=== PATIENT | female | born 1980 | race Caucasian/White ===

== ENCOUNTER 2017-05-31 13:47 | Emergency (ER) | payer BC ==
[~2017-05-31 13:47] MED LIST: HYDR-3533 PO; LIDO5DIS35 TD; ZOVI800T13 PO
[2017-05-31 13:52] VITALS: BP 120/73; PULSE 100; RESP 20; TEMP 97.5; O2SAT 99
[2017-05-31 14:32] VITALS: BP_SYST 107; BP_SYST 109; BP_SYST 115; BP_DIAS 62; BP_DIAS 71; BP_DIAS 78; RESP 18
[2017-05-31] MEDS ORDERED: SODIUM CHLOR 0.9% 1000 ML INJ 1,000 ML IV ONE (14:41)
[2017-05-31] MEDS ORDERED: SODIUM CHLORIDE 0.9% FLUSH 10 ML FLUSH IVF PRN (14:45)
--- NOTE | 2017-05-31 14:53 | PD ---
HPI Chief Complaint: Syncope/Near-Syncope Time Seen by Provider: 14:33 Travel History International Travel<30 days: No Contact w/Intl Traveler<30days: No Traveled to known affect area: No History of Present Illness HPI Patient is a 37-year-old female who presents to emergency with complete a syncopal episode. Patient reports that she has no medical problems, reports that she has been feeling fine all day. Patient reports that she was at work today and spent her lunch break outside. Reports that after her lunch break, she went to the elevator and had a syncopal episode. Patient reports that before she knew it, she was sitting straight up on the elevator. Reports that the elevator had not moved yet so she doesn't think that she was "out" for a prolonged period of time. Reports that she is unsure if she hit her head or not but "doubts it." Patient at this time complains of a slight right-sided frontal headache. Denies any vision changes. Patient denies lightheadedness or dizziness. She denies any chest pain or shortness of breath. Patient reports no abdominal pain just abdominal discomfort with no nausea or vomiting or diarrhea. Patient with no fevers or chills or any other complaints. PFSH Past Medical History Medical History: Denies Significant Hx Hx Anticoagulant Therapy: No Cardiovascular Problems: No Chemotherapy: No Cerebrovascular Accident: No Diabetes: No Respiratory: No Tetanus Vaccination: > 5 Years Influenza Vaccination: No ?: Unknown : 2 Para: 2 Past Surgical History Hysterectomy: No Oral Surgery: Yes Thoracic Surgery: Yes (RIGHT BREAST LUMP REMOVAL) Other Surgery: Yes (R LUMPECTOMY) Social History Alcohol Use: Yes (OCC) Tobacco Use: Yes (09/20 ppd) Substance Use: No Allergies-Medications (Allergen,Severity, Reaction): Coded Allergies: progesterone (Unverified Allergy, Severe, HEADACHE, 05/31/17) Reported Meds & Prescriptions Reported Meds & Active Scripts Active Zovirax (Acyclovir) 800 Mg Tab 800 Mg PO 5 TIMES A DAY 7 Days Lortab 5 mg/325 mg (Hydrocodone/Acetaminophen 5 mg/325 mg) 1 Tab 1 Tab PO Q6H PRN Lidoderm Patch (Lidocaine) 5 % Dis 1 Patch TD DAILY PRN Review of Systems General / Constitutional: No: Fever Eyes: No: Visual changes HENT: Positive: Headaches Cardiovascular: Positive: Syncope, No: Chest Pain or Discomfort, Palpitations, Irregular Rhythm, Tachycardia, Diaphoresis, Dyspnea on exertion, Varicosities, Edema, Cyanosis Respiratory: No: Cough, Shortness of Breath, Wheezing Gastrointestinal: No: Nausea, Vomiting, Diarrhea, Abdominal Pain Genitourinary: No: Dysuria Musculoskeletal: No: Pain Skin: No Rash Neurologic: No: Weakness Psychiatric: No: Depression Endocrine: No: Polydipsia Hematologic/Lymphatic: No: Easy Bruising Physical Exam Narrative GENERAL: NAD, Nontoxic SKIN: Focused skin assessment warm/dry. HEAD: Atraumatic. Normocephalic. EYES: Pupils equal and round. No scleral icterus. No injection or drainage. ENT: No nasal bleeding or discharge. Mucous membranes pink and moist. NECK: Trachea midline. No JVD. CARDIOVASCULAR: Regular rate and rhythm. No murmur appreciated. RESPIRATORY: No accessory muscle use. Clear to auscultation. Breath sounds equal bilaterally. GASTROINTESTINAL: Abdomen soft, non-tender, nondistended. Hepatic and splenic margins not palpable. MUSCULOSKELETAL: No obvious deformities. No clubbing. No cyanosis. No edema. NEUROLOGICAL: Awake and alert. No obvious cranial nerve deficits. Motor grossly within normal limits. Normal speech. CN 2-12 grossly intact with no neurological deficits PSYCHIATRIC: Appropriate mood and affect; insight and judgment normal. Data Data Last Documented VS Vital Signs Date Time Temp Pulse Resp B/P (MAP) Pulse Ox O2 Delivery O2 Flow Rate FiO2 05/31/17 16:23 89 16 113/67 (82) 97 Room Air 05/31/17 13:52 97.5 Orders Orders Electrocardiogram (05/31/17 14:41) Ed Urine Pregnancytest Poc (05/31/17 14:41) Complete Blood Count With Diff (05/31/17 14:41) Comprehensive Metabolic Panel (05/31/17 14:41) Magnesium (Mg) (05/31/17 14:41) Ckmb (Isoenzyme) Profile (05/31/17 14:41) Troponin I (05/31/17 14:41) Act Partial Throm Time (Ptt) (05/31/17 14:41) Prothrombin Time / Inr (Pt) (05/31/17 14:41) Urinalysis - C+S If Indicated (05/31/17 14:41) Chest, Single Ap (05/31/17 14:41) Ct Brain W/O Iv Contrast(Rout) (05/31/17 14:41) Ecg Monitoring (05/31/17 14:41) Iv Access Insert/Monitor (05/31/17 14:41) Oximetry (05/31/17 14:41) Sodium Chloride 0.9% Flush (Ns Flush) (05/31/17 14:45) Sodium Chlor 0.9% 1000 Ml Inj (Ns 1000 M (05/31/17 14:41) Orthostatic Vital Signs (05/31/17 14:49) Labs Laboratory Tests Test 05/31/17 14:52 05/31/17 15:15 White Blood Count 10.3 TH/MM3 Red Blood Count 4.62 MIL/MM3 Hemoglobin 13.7 GM/DL Hematocrit 39.5 % Mean Corpuscular Volume 85.4 FL Mean Corpuscular Hemoglobin 29.6 PG Mean Corpuscular Hemoglobin Concent 34.7 % Red Cell Distribution Width 12.3 % Platelet Count 295 TH/MM3 Mean Platelet Volume 7.7 FL Neutrophils (%) (Auto) 74.0 % Lymphocytes (%) (Auto) 19.9 % Monocytes (%) (Auto) 4.7 % Eosinophils (%) (Auto) 0.8 % Basophils (%) (Auto) 0.6 % Neutrophils # (Auto) 7.5 TH/MM3 Lymphocytes # (Auto) 2.1 TH/MM3 Monocytes # (Auto) 0.5 TH/MM3 Eosinophils # (Auto) 0.1 TH/MM3 Basophils # (Auto) 0.1 TH/MM3 CBC Comment DIFF FINAL Differential Comment Prothrombin Time 10.5 SEC Prothromb Time International Ratio 1.0 RATIO Activated Partial Thromboplast Time 26.4 SEC Blood Urea Nitrogen 10 MG/DL Creatinine 0.86 MG/DL Random Glucose 120 MG/DL Total Protein 7.2 GM/DL Albumin 3.7 GM/DL Calcium Level 8.2 MG/DL Magnesium Level 2.2 MG/DL Alkaline Phosphatase 76 U/L Aspartate Amino Transf (AST/SGOT) 19 U/L Alanine Aminotransferase (ALT/SGPT) 26 U/L Total Bilirubin 0.3 MG/DL Sodium Level 137 MEQ/L Potassium Level 3.9 MEQ/L Chloride Level 104 MEQ/L Carbon Dioxide Level 25.7 MEQ/L Anion Gap 7 MEQ/L Estimat Glomerular Filtration Rate 73 ML/MIN Total Creatine Kinase 45 U/L Troponin I LESS THAN 0.02 NG/ML Urine Color YELLOW Urine Turbidity CLEAR Urine pH 6.0 Urine Specific [place] 1.005 Urine Protein NEG mg/dL Urine Glucose (UA) NEG mg/dL Urine Ketones NEG mg/dL Urine Occult Blood NEG Urine Nitrite NEG Urine Bilirubin NEG Urine Leukocyte Esterase NEG Urine RBC 0-3 /hpf Urine WBC 0-2 /hpf Urine Squamous Epithelial Cells 0-5 /hpf Microscopic Urinalysis Comment CULT NOT INDICATED MDM Medical Decision Making Medical Screen Exam Complete: Yes Emergency Medical Condition: Yes Interpretation(s) EKG at 1457: NSR at 77bpm, qt/qtc: 359/390, no acute st or t wave changes Vital Signs Date Time Temp Pulse Resp B/P (MAP) Pulse Ox O2 Delivery O2 Flow Rate FiO2 05/31/17 14:32 89 18 109/62 (78) 100 18 107/71 (83) 107 18 115/78 (90) 05/31/17 14:29 Room Air 05/31/17 13:52 97.5 100 20 120/73 (89) 99 Differential Diagnosis Differential includes ACS, arrhythmia, intracranial hemorrhage, CVA though unlikely, electrolyte abnormality, , orthostatic hypotension Narrative Course Patient is a 37-year-old female who presents to emergency room after she had a syncopal episode at work today. Patient reports that she felt fine prior to the onset of her symptoms. Patient does not think that she hit her head during this episode. Patient was placed on a heat pump installer upon arrival to the emergency room. CT of the head ordered. Lab work ordered including orthostatic vital signs. Plan to monitor patient. Vital Signs Date Time Temp Pulse Resp B/P (MAP) Pulse Ox O2 Delivery O2 Flow Rate FiO2 05/31/17 16:23 89 16 113/67 (82) 97 Room Air 05/31/17 15:02 98 Room Air 05/31/17 14:32 89 18 109/62 (78) 100 18 107/71 (83) 107 18 115/78 (90) 05/31/17 14:29 Room Air 05/31/17 13:52 97.5 100 20 120/73 (89) 99 Laboratory Tests Test 05/31/17 14:52 05/31/17 15:15 White Blood Count 10.3 TH/MM3 (4.0-11.0) Red Blood Count 4.62 MIL/MM3 (4.00-5.30) Hemoglobin 13.7 GM/DL (11.6-15.3) Hematocrit 39.5 % (35.0-46.0) Mean Corpuscular Volume 85.4 FL (80.0-100.0) Mean Corpuscular Hemoglobin 29.6 PG (27.0-34.0) Mean Corpuscular Hemoglobin Concent 34.7 % (32.0-36.0) Red Cell Distribution Width 12.3 % (11.6-17.2) Platelet Count 295 TH/MM3 (150-450) Mean Platelet Volume 7.7 FL (7.0-11.0) Neutrophils (%) (Auto) 74.0 % (16.0-70.0) Lymphocytes (%) (Auto) 19.9 % (9.0-44.0) Monocytes (%) (Auto) 4.7 % (0.0-8.0) Eosinophils (%) (Auto) 0.8 % (0.0-4.0) Basophils (%) (Auto) 0.6 % (0.0-2.0) Neutrophils # (Auto) 7.5 TH/MM3 (1.8-7.7) Lymphocytes # (Auto) 2.1 TH/MM3 (1.0-4.8) Monocytes # (Auto) 0.5 TH/MM3 (0-0.9) Eosinophils # (Auto) 0.1 TH/MM3 (0-0.4) Basophils # (Auto) 0.1 TH/MM3 (0-0.2) CBC Comment DIFF FINAL Differential Comment Prothrombin Time 10.5 SEC (9.8-11.6) Prothromb Time International Ratio 1.0 RATIO Activated Partial Thromboplast Time 26.4 SEC (24.3-30.1) Blood Urea Nitrogen 10 MG/DL (7-18) Creatinine 0.86 MG/DL (0.50-1.00) Random Glucose 120 MG/DL (74-106) Total Protein 7.2 GM/DL (6.4-8.2) Albumin 3.7 GM/DL (3.4-5.0) Calcium Level 8.2 MG/DL (8.5-10.1) Magnesium Level 2.2 MG/DL (1.5-2.5) Alkaline Phosphatase 76 U/L (45-117) Aspartate Amino Transf (AST/SGOT) 19 U/L (15-37) Alanine Aminotransferase (ALT/SGPT) 26 U/L (10-53) Total Bilirubin 0.3 MG/DL (0.2-1.0) Sodium Level 137 MEQ/L (136-145) Potassium Level 3.9 MEQ/L (3.5-5.1) Chloride Level 104 MEQ/L (98-107) Carbon Dioxide Level 25.7 MEQ/L (21.0-32.0) Anion Gap 7 MEQ/L (5-15) Estimat Glomerular Filtration Rate 73 ML/MIN (>89) Total Creatine Kinase 45 U/L (26-192) Troponin I LESS THAN 0.02 NG/ML Urine Color YELLOW (YELLW/STRAW) Urine Turbidity CLEAR (CLEAR) Urine pH 6.0 (5.0-8.5) Urine Specific [place] 1.005 (1.002-1.035) Urine Protein NEG mg/dL (NEG-TRACE) Urine Glucose (UA) NEG mg/dL (NEG) Urine Ketones NEG mg/dL (NEG) Urine Occult Blood NEG (NEG) Urine Nitrite NEG (NEG) Urine Bilirubin NEG (NEG) Urine Leukocyte Esterase NEG (NEG) Urine RBC 0-3 /hpf (0-3) Urine WBC 0-2 /hpf (0-5) Urine Squamous Epithelial Cells 0-5 /hpf (0-5) Microscopic Urinalysis Comment CULT NOT INDICATED Last Impressions Head CT 05/31/17 144 Signed Impressions: Service Date/Time: May 16:01 - CONCLUSION: No acute disease. Kiran Dorantes MD Chest X-Ray 05/31/17 144 Signed Impressions: Service Date/Time: May 14:44 - CONCLUSION: 1. Minimal increased interstitial markings suggesting mild pulmonary vascular congestion versus viral pneumonitis. Clinical correlation is recommended. 2. Mild cardiomegaly. Kiran Dorantes MD Patient reevaluated, patient feeling much better at this time. Discussed need for patient to follow up with ball truing machine operator as outpatient. She is not to perform an exertional activities that she is seen and cleared by ball truing machine operator. Patient will return to the emergency room immediately if she has return of symptoms. All labs as well as all studies were reviewed with patient in detail. Patient is thankful for care, she will return to ER should symptoms return or persist Diagnosis Primary Impression: Syncope Qualified Codes: R55 - Syncope and collapse Additional Impression: Viral pneumonitis Referrals: Keagan Hernandez MD Patient Instructions: General Instructions Additional Instructions: Please provide patient with a copy of her lab work and studies at discharge Please follow up with your primary care doctor in 24-48 hours Return to ER if symptoms worsen or progress Return to ER as needed Do not perform any exertional activities until you are seen and cleared by ball truing machine operator Disposition: 01 DISCHARGE HOME Condition: Stable Hillary Chapa DO May 31, 2017 14:53
[2017-05-31 14:59] LABS: AUTOMATED NEUTROPHIL # 7.5 TH/MM3 (1.8-7.7); BASOPHIL # 0.1 TH/MM3 (0-0.2); BASOPHIL % 0.6 % (0.0-2.0); EOSINOPHIL # 0.1 TH/MM3 (0-0.4); EOSINOPHIL % 0.8 % (0.0-4.0); HEMATOCRIT 39.5 % (35.0-46.0); HEMO FLAGS DIFF FINAL; LYMPH % 19.9 % (9.0-44.0); LYMPHOCYTE # 2.1 TH/MM3 (1.0-4.8); MEAN CELL VOLUME 85.4 FL (80.0-100.0); MEAN CORPUSCULAR HEMOGLOBIN 29.6 PG (27.0-34.0); MEAN CORPUSCULAR HGB CONC 34.7 % (32.0-36.0); MONO % 4.7 % (0.0-8.0); PLATELET COUNT 295 TH/MM3 (150-450); RED BLOOD COUNT 4.62 MIL/MM3 (4.00-5.30); RED CELL DISTRIBUTION WIDTH 12.3 % (11.6-17.2); WHITE BLOOD COUNT 10.3 TH/MM3 (4.0-11.0)
[2017-05-31 15:02] VITALS: O2SAT 98
[2017-05-31 15:06] LABS: CHLORIDE 104 MEQ/L (98-107); POTASSIUM 3.9 MEQ/L (3.5-5.1); SODIUM (NA) 137 MEQ/L (136-145)
[2017-05-31 15:10] LABS: ANION GAP 7 MEQ/L (5-15); BICARBONATE 25.7 MEQ/L (21.0-32.0); BLOOD UREA NITROGEN 10 MG/DL (7-18); MAGNESIUM 2.2 MG/DL (1.5-2.5)
[2017-05-31 15:13] LABS: ALT (GPT) 26 U/L (10-53); APTT (PATIENT) 26.4 SEC (24.3-30.1); AST (GOT) 19 U/L (15-37); GLOMERULAR FILTRATION RATE 73 ML/MIN (>89); PROTHROMBIN TIME - PATIENT 10.5 SEC (9.8-11.6)
[2017-05-31 15:15] LABS: TOTAL BILIRUBIN ADULT 0.3 MG/DL (0.2-1.0)
[2017-05-31 15:16] LABS: ALKALINE PHOSPHATASE 76 U/L (45-117)
[2017-05-31 15:27] LABS: CREATINE KINASE 45 U/L (26-192)
--- NOTE | 2017-05-31 15:32 | RADRPT ---
EXAM DATE/TIME: 05/31/2017 14:44 [facility] COMPARISON: No previous studies available for comparison. INDICATIONS : Syncope this afternoon. MEDICAL HISTORY : None. SURGICAL HISTORY : None. ENCOUNTER: Initial ACUITY: 1 day PAIN SCORE: 0/10 LOCATION: Bilateral chest FINDINGS: The heart is minimally prominent. Minimal increased interstitial markings are noted bilaterally cons istent with mild pulmonary vascular congestion versus viral pneumonitis. Clinical correlation is krishna mmended. No focal alveolar consolidation is noted. CONCLUSION: 1. Minimal increased interstitial markings suggesting mild pulmonary vascular congestion versus viral pneumonitis. Clinical correlation is recommended. 2. Mild cardiomegaly. Kiran Dorantes MD on May 31, 2017 at 15:24 Board Certified Radiologist. This report was verified electronically.
[2017-05-31 15:36] LABS: BLOOD, URINE NEG (NEG); GLUCOSE,URINE NEG (NEG); KETONE, URINE NEG (NEG); NITRITE,URINE NEG (NEG)
[2017-05-31 15:46] LABS: URINE COLOR YELLOW (YELLW/STRAW)
[2017-05-31 15:47] LABS: COMMENT (UR) CULT NOT INDICATED; CULTURE IF INDICATED CULT NOT INDICATED; RBC, URINE 0-3 /hpf (0-3); SQUAMOUS EPITHELIAL CELL URINE 0-5 /hpf (0-5); WBC, URINE 0-2 /hpf (0-5)
--- NOTE | 2017-05-31 16:18 | RADRPT ---
EXAM DATE/TIME: 05/31/2017 16:01 [facility] COMPARISON: No previous studies available for comparison. INDICATIONS : Syncopal episode. RADIATION DOSE: 63.58 CTDIvol (mGy) MEDICAL HISTORY : None SURGICAL HISTORY : None. ENCOUNTER: Initial ACUITY: 1 day PAIN SCALE: 2/10 LOCATION: cranial TECHNIQUE: Multiple contiguous axial images were obtained of the head. Using automated exposure control and adj ustment of the mA and/or kV according to patient size, radiation dose was kept as low as reasonably a chievable to obtain optimal diagnostic quality images. DICOM format image data is available electro nically for review and comparison. FINDINGS: CEREBRUM: The ventricles are normal for age. No evidence of midline shift, mass lesion, hemorrhage or acute in farction. No extra-axial fluid collections are seen. POSTERIOR FOSSA: The cerebellum and brainstem are intact. The 4th ventricle is midline. The cerebellopontine angle i s unremarkable. EXTRACRANIAL: The visualized portion of the orbits is intact. SKULL: The calvaria is intact. No evidence of skull fracture. CONCLUSION: No acute disease. Kiran Dorantes MD on May 31, 2017 at 16:15 Board Certified Radiologist. This report was verified electronically.
[2017-05-31 16:23] VITALS: BP 113/67; PULSE 89; RESP 16; O2SAT 97
--- NOTE | 2017-06-01 11:30 | EKG ---
Date Performed: 05/31/2017 Time Performed: 14:57:06 PTAGE: 37 years EKG: Sinus rhythm NORMAL ECG NO PREVIOUS TRACING DOCTOR: Joe Hoover Interpretating Date/Time 06/01/2017 11:29:24
== END 2017-05-31 17:32 | disposition home or self-care (01) ==
LOC: PHED 13:47
DX: R55 Syncope and collapse (principal); J12.9 Viral pneumonia, unspecified; F17.200 Nicotine dependence, unspecified, uncomplicated
CPT/HCPCS: 70450; 71010; 80053; 81001; 82550; 83735; 84484; 84703; 85025; 85610; 85730; 93005; 96360; 99285; J7030